=== PATIENT | male | born 1955 | race African-American/Black ===

== ENCOUNTER 2017-04-10 01:00 | Inpatient (IN) | payer MEDICARE ==
--- NOTE | ~2017-04-10 | DS ---
Unit #: [id number] #: [id number] Patient: NICKOLAS HUGHES [id number] [facility] [address] [place] [address] [id number] MR#: [id number] NAME: NICKOLAS HUGHES ROOM: P256 Age: 61 Sex: M Admission Date: 04/10/2017 : 1955 Discharge Date: 04/14/2017 Attending Physician: Shon Vidal M.D. Primary Care Physician: Primary Care Physician No DISCHARGE SUMMARY REASON FOR ADMISSION The patient is a 61-year-old man with a history of PTSD from service, who reported noncompliance with medication and suicidal ideation. He was admitted for stabilization. LABORATORY DATA Please see hospital chart. HOSPITAL COURSE The patient was admitted and placed on suicide precautions. His home medications will be restarted after we contact his outpatient provider. He had no further suicidal ideation, and showed improvement with participation in groups and activities. On the date of discharge, he was once again able to contract for safety in the outpatient setting. DISCHARGE DIAGNOSIS AXIS I: Posttraumatic stress disorder, chronic. AXIS II: No diagnosis. AXIS III: Hypertension, hypothyroidism, hyperlipidemia, and irritable bowel syndrome. AXIS IV: AXIS V: DISCHARGE INSTRUCTIONS Follow up with Perlita Alejandre. DISCHARGE MEDICATIONS Zyprexa 5 mg at bedtime for mood stability, trazodone 100 mg at bedtime for insomnia. Primary care medicines were continued, unchanged. CONDITION AT DISCHARGE Improved. PROGNOSIS Fair. DIET AND ACTIVITY Per primary care doctor. Dictated by... Unit #: [id number] #: [id number] Patient: NICKOLAS HUGHES Shon Vidal M.D. [facility]/kal TD: 04/29/2017 14:01 JOB #: [id number] DISCHARGE SUMMARY Page 1 of 1 X Shon Vidal MD X DISCHARGE SUMMARY
--- NOTE | ~2017-04-10 | HP ---
Unit #: [id number] #: [id number] Patient: NICKOLAS HUGHES [id number] [place] [address] [id number] MR#: [id number] NAME: NICKOLAS HUGHES ROOM: P207 Age: 61 Sex: M Admission Date: 04/10/2017 : 1955 Attending Physician: Shon Vidal M.D. Admitting Physician: Shon Vidal M.D. Primary Care Physician: Primary Care Physician No HISTORY AND PHYSICAL HISTORY OF PRESENT ILLNESS The patient is a 61-year-old male admitted to [address] [place] [address] on 04/10/2017 for suicidal ideations. PAST MEDICAL HISTORY 1. Hypertension 2. Hyperlipidemia 3. Hypothyroidism 4. IBS with diarrhea PAST SURGICAL HISTORY Cardiac stent placement SOCIAL HISTORY He is disabled. He lives alone. He denies alcohol, tobacco and drug use. FAMILY MEDICAL HISTORY Noncontributory. ALLERGIES No known drug allergies. CURRENT MEDICATIONS The patient is not on any home medications. REVIEW OF SYSTEMS CONSTITUTIONAL: No fever or chills. HEENT: Denies any sore throat, ear pain or runny nose. CARDIOVASCULAR: Denies chest pain, irregular heart rhythm or palpitations. CHEST: Denies shortness of breath or cough. No hemoptysis. GASTROINTESTINAL: Denies nausea, vomiting, diarrhea or chronic constipation. ENDOCRINE: Denies history of increased thirst or urination. No recent significant weight loss or gain. GENITOURINARY: Denies dysuria, frequency, or hematuria. SKIN: Denies any rashes. HEMATOLOGIC: Denies history of increased bleeding or bruising. MUSCULOSKELETAL: Denies any hot, swollen joints. No generalized muscle pain. NEUROLOGIC: Denies problems with vision or speech. No frequent, severe headaches. No numbness, tingling or weakness in any extremities. Denies loss of bladder or bowel control. Unit #: [id number] #: [id number] Patient: NICKOLAS HUGHES PHYSICAL EXAM GENERAL: He is awake, alert and oriented in no acute distress. VITAL SIGNS: Temperature 98.2, heart rate 88, respiration 18, blood pressure 147/84. HEIGHT: 5'9". WEIGHT: 135 pounds. SKIN: Warm and dry without rash or lesion. HEENT: Normocephalic. TMs not viewed. Oral and nasal passages clear. Conjunctivae clear. PERRLA. EOMs intact. NECK: Supple without lymphadenopathy or thyromegaly. HEART: Regular rate and rhythm without murmur. LUNGS: Clear. ABDOMEN: Soft, nontender. : Not done. EXTREMITIES: No evidence of cyanosis, clubbing or edema. Moves all without focal deficit. NEUROLOGICAL: Grossly within normal limits. Cranial Nerves: II: Visual jurado are intact. III, IV AND : Extraocular movements are intact. Pupils are equal, round and reactive to light. V: Facial sensation is grossly normal. VII: Facial movements and expression are normal. VIII: Auditory acuity grossly intact. IX, X: Uvula is midline. Phonation is normal. XI: Patient shrugs shoulders and turns head normally. XII: Tongue protrudes in the midline. Sensory and Motor Function: Sensory and motor sensation is grossly normal. Motor: moves all extremities well. IMPRESSION 1. Psychiatric admission. 2. Hypertension. 3. Hyperlipidemia. 4. Hypothyroidism. 5. IBS with diarrhea. RECOMMENDATIONS Psychiatric per psychiatrist. MEDICAL: No contraindication to participate in facility activities. MEDICAL PROGNOSIS Good. MEDICAL CONDITION Stable. Dictated by... Mathew Hobson/danica TD: 04/10/2017 21:43 JOB #: [id number] Unit #: [id number] #: [id number] Patient: NICKOLAS HUGHES HISTORY AND PHYSICAL Page 1 of 1 X LAURA CANO APRN HISTORY AND PHYSICAL
--- NOTE | ~2017-04-10 | EKG ---
PATIENT: NICKOLAS HUGHES UNIT #: [id number] Ventricular Rate: 0 BPM Atrial Rate: 0 BPM QRS Duration: 0 ms Q-T Interval: 0 ms QTC Calculation(Bezet): 0 ms Calculated R Ponce: 0 degrees Calculated T Ponce: 0 degrees Diagnosis Line: No QRS complexes found, no ECG analysis Diagnosis Line: possible Diagnosis Line: When compared with ECG of 16-MAY-2016 00:15, Diagnosis Line: ventricular asystole is seen Diagnosis Line: Confirmed by ANUSHA SCHULTZ MD ([id number]) on 04/14/2017 Diagnosis Line: 8:38:38 PM INTERPRETING MD: MARION OLIVIA
--- NOTE | ~2017-04-10 | PA ---
Unit #: [id number] #: [id number] Patient: BA JANE [id number] [facility] [address] [place] [address] [id number] I MR#: [id number] NAME: BA JANE ROOM: P256 Age: 61 Sex: M Admission Date: 04/10/2017 : 1955 Date of Assessment: Attending Physician: Shon Vidal M.D. Admitting Physician: Shon Vidal M.D. Primary Care Physician: Primary Care Physician No PSYCHIATRIC ASSESSMENT INFORMANTS Patient, partially reliable; OLOP, reliable. CHIEF COMPLAINT "bad thoughts". HISTORY OF PRESENT ILLNESS Ba Jane is a 61-year-old man, who reports a history of PTSD from service. He was treated at the [facility], but reports increasing "bad thoughts" with thoughts of wanting to jump off the bridge to commit suicide. He has also been noncompliant with his treatment, which he claims he gets to the [facility] and through the local facility and [facility]. He was unable to contract for safety and admitted for stabilization. PAST PSYCHIATRIC HISTORY The patient reports a history of posttraumatic stress disorder, and "schizophrenia", which is unconfirmed. He has been inpatient at [facility], at the [facility], and also reports previous treatment at this facility, although medical records of such treatment are unavailable. He had difficulty recalling his current psychiatric medication regimen and we will need to determine this by a call to his current provider. FAMILY PSYCHIATRIC HISTORY The patient denies any family history of mental illness or substance abuse. SOCIAL HISTORY The patient denies a history of childhood physical, sexual, or emotional abuse or neglect. He is a single heterosexual man, who has graduated from high school and is on long-term disability. 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 He lives alone with minimal family support. PAST MEDICAL HISTORY Significant for hypertension, thyroid disease, and PTSD. MEDICATIONS Please see MAR for the patient's medications which he could not recall accurately. ALLERGIES No known medication allergies. Unit #: [id number] #: [id number] Patient: BA JANE SUBSTANCE USE HISTORY The patient denies any history of chemical dependence or abuse. MENTAL STATUS EXAMINATION The patient presented as a mildly disheveled man, who appeared older than his stated age. He was cooperative with the examination. His speech was soft, mildly circumstantial, but easily understood. His musculoskeletal examination was calm. His mood was depressed and irritable with a congruent affect. He was alert and fully oriented. His memory and concentration were intact. His thought processes were logical and his thought processes were concrete, but no active psychosis was seen. He had reported some vague auditory hallucinations prior to coming to the hospital, but these were not in evidence during my assessment. He reported suicidal ideation with a plan to jump from the bridge and could not contract for safety. Insight and judgment were fair. Fund of knowledge and abstraction were fair. ASSETS AND LIABILITIES The patient is connected with caregivers, has long-term disability and medical insurance. Liabilities include apparent noncompliance with treatment. ADMITTING DIAGNOSES AXIS I: Posttraumatic stress disorder, chronic. AXIS II: No diagnosis. AXIS III: Hypertension. Hypothyroidism. History of hyperlipidemia. History of IBS. AXIS IV: AXIS V: PSYCHIATRIC PLAN The patient was admitted and placed on suicide precautions. We will contact his outpatient provider and restart his previous medications with upward titration as clinically indicated. He will enroll in psychotherapy groups and activities. Physical examination and laboratory studies will be ordered and reviewed. TREATMENT GOALS Resolution of SI, improvement in mood, improvement in insight, and improvement in coping skills. DISCHARGE PLANNING Follow up with Perlita Rojas, and the [facility]. ESTIMATED LENGTH OF STAY 5 days. Dictated by... Shon Vidal M.D. [facility]/kal TD: 04/12/2017 16:41 JOB #: [id number] Unit #: [id number] #: [id number] Patient: BA JANE PSYCHIATRIC ASSESSMENT Page 1 of 1 X Shon Vidal MD X PSYCHIATRIC ASSESSMENT
--- NOTE | ~2017-04-10 | PA ---
Unit #: [id number] #: [id number] Patient: NICKOLAS HUGHES [id number] [facility] [address] [place] [address] [id number] MR#: [id number] NAME: NICKOLAS HUGHES ROOM: P256 Age: 61 Sex: M Admission Date: 04/10/2017 : 1955 Date of Assessment: Attending Physician: Shon Vidal M.D. Admitting Physician: Shon Vidal M.D. Primary Care Physician: Primary Care Physician No PSYCHIATRIC ASSESSMENT INFORMANTS The patient, which is considered reliable and [facility], which is considered reliable. CHIEF COMPLAINT He reports "I'm suicidal." HISTORY OF PRESENT ILLNESS The patient is a 61-year-old male who reports he has been having medical issues for the past year dealing with his stomach. He reports he is a of the [employer] and has a history of PTSD, depression, and anxiety. He reports he was eating at [employer] and began to have issues with his stomach again and that he started having "bad thoughts." He reports he started feeling very depressed due to anxiety and his current health issues. He reported thoughts of going to jump off a bridge to commit suicide at this time. PAST PSYCHIATRIC HISTORY The patient reports a history of attempted overdose on medications in 1992 and history of being admitted at other facilities for psychiatric issues. [facility]. FAMILY PSYCHIATRIC HISTORY The patient denies family psychiatric history at this time. 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 He reports that he lives by himself and is single and he has 4 children. At this time, he is unemployed and receives disability due to his PTSD from being in the [employer]. MEDICATIONS [facility] Please see MAR when completed. ALLERGIES No reported allergies at this time. SUBSTANCE ABUSE HISTORY The patient denies any form of substance abuse in the past. MENTAL STATUS EXAMINATION Reveals a 61-year-old male, casually dressed, mildly Unit #: [id number] #: [id number] Patient: NICKOLAS HUGHES disheveled with fair personal hygiene. The patient is oriented to person, place, time, date, and situation. His mood appears dysthymic with a congruent affect. His speech is relevant and coherent with a normal tone and rate. Thought processes and content are logical and goal directed. He currently denies suicidal or homicidal ideations, and reports that he can keep himself safe at this facility. I cannot confirm he can do so if on his own and at home. He denies auditory or visual hallucinations, and no overt symptoms of psychosis are noted. His memory and intellectual function appear grossly intact. His judgment and insight at this time appear limited. He reports his sleep and appetite as evidenced by frequent awakenings and reports inadequate appetite at this time. ASSETS AND LIABILITIES Assets are the patient's willingness to be treated. Liabilities would be current suicidal ideation and the patient's health/medical issues. ADMITTING DIAGNOSES AXIS I: Major depressive disorder, severe, recurrent without psychotic features. AXIS II: Deferred. AXIS III: Hypertension, hyperlipidemia, hypothyroidism, irritable bowel syndrome, and chronic issues with diarrhea. AXIS IV: AXIS V: PSYCHIATRIC PLAN The patient was admitted and placed on suicidal precautions. We will continue his home medications once [facility] by the [facility]. We will encourage the patient to enroll and integrate himself within the therapeutic milieu and enroll and participate in unit groups and activities at this time. Dictated by... Jeannie Hughes APRN for [facility]/kal TD: 04/12/2017 08:31 JOB #: [id number] PSYCHIATRIC ASSESSMENT Page 1 of 1 X JEANNIE HUGHES PSYCHIATRIC ASSESSMENT
[~2017-04-10 01:00] MED LIST: ALLER-TEC10 MG PO; CERTRIZINE PO; HCTZ PO; ISOSORBIDE MONO30 M1 PO; ISOSORBIDE PO; LORTAB 5/500 TA1 TA1 PO; METOPROLOL PO; METOPROLOL SUC100 MG PO; METOPROLOL TAR25 MG PO; MIRALAX17 GM PO; OMEPRAZOLE40 MG PO; SYNTHROID0.2 MG PO; THYROXINE; TOPROL XL 50 MG50 M1 PO; TRAMADOL HCL50 M1 PO; TRIAMTERENE PO; TRIAMTERENE/HCT1 TA3 PO; [UNRECOGNIZED DRUG - OTHER] PO; [UNRECOGNIZED DRUG - OTHER] PO
[2017-04-11 09:43] LABS: BASOPHIL% 0.5 % (0-2.5); EOSINOPHIL# 0.3 X10e3 (0-0.7); EOSINOPHIL% 6.4 % (0.0-7.0); HEMATOCRIT 45.1 % (38.0-50.0); HEMOGLOBIN 14.8 gm/dL (13.0-16.0); LYMPHOCYTE# 1.2 X10e3 (1.0-3.5); LYMPHOCYTE% 28.6 % (17.0-45.0); MEAN CORPUSCULAR HEMOGLOBIN 29.9 PG (28-34); MEAN CORPUSCULAR HGB CONC 32.9 g/dL (30-36); MEAN PLATELET VOLUME 7.3 FL (6.5-11.5); MONOCYTE# 0.3 X10e3 (0-1.0); MONOCYTE% 6.6 % (3.0-12.0); NEUTROPHIL# 2.4 X10e3 (1.5-7.1); NEUTROPHIL% 57.9 % (40-75); PLATELET COUNT 196 X10e3 (140-420); RED BLOOD COUNT 4.95 X10e (3.90-5.60); RED CELL DISTRIBUTION WIDTH 12.9 % (11.0-15.5); WHITE BLOOD COUNT 4.2 X10e3 (4.0-10.5)
[2017-04-11 09:48] LABS: URINE APPEARANCE CLEAR; URINE BILIRUBIN NEG (NEG); URINE BLOOD NEG (NEG); URINE COLOR YELLOW; URINE GLUCOSE NEG (NEG); URINE KETONE NEG (NEG); URINE LEUKOCYTE ESTERASE NEG (NEG); URINE NITRATE NEG (NEG); URINE PH 7.5 (5-8); URINE PROTEIN NEG (NEG); URINE UROBILINOGEN 0.2 MG/DL (NEG)
[2017-04-11 10:04] LABS: DIFF IND NO
[2017-04-11 10:43] LABS: AMPHETAMINE NEG (NEG); BARBITURATES NEG (NEG); BENZODIAZEPINES NEG (NEG); COCAINE NEG (NEG); MARIJUANA POS (NEG); OPIATES NEG (NEG); TRICYCLIC ANTIDEPRESSANTS NEG (NEG); U METHADONE NEG (NEG)
[2017-04-11 10:45] LABS: ALBUMIN SERUM 4.1 g/dL (3.5-5.0); BILIRUBIN,TOTAL 0.7 mg/dL (0.2-2.0); BUN/CREATININE RATIO 12.3; CALCIUM SERUM 10.4 mg/dL (8.4-10.2); CREATININE SERUM 1.3 mg/dL (0.6-1.4); GLOM FILT RATE Estimated 67.8 mL/min (>60); POTASSIUM 3.9 mmol/L (3.5-5.1); PROTEIN TOTAL SERUM 6.7 g/dL (6.0-8.3)
[2017-06-21] MEDS ORDERED: AMLODIPINE BESY10 MG PO (14:10)
[2017-06-21] MEDS ORDERED: SYNTHROID0.2 MG DOB (14:10)
[2017-06-21] MEDS ORDERED: LIPITOR20 MG PO (14:11)
[2017-06-21] MEDS ORDERED: VITAMIN D 22000 UNIT (14:12)
== END 2017-04-14 14:10 | disposition home or self-care (01) | DRG 885 ==
LOC: P2S 04:42 → P2L 04-11 15:27
PROVIDERS: Psychiatry & Neurology Psychiatry
DX: F33.2 Major depressive disorder, recurrent severe without psychotic features (principal); R45.851 Suicidal ideations; I10 Essential (primary) hypertension; F43.12 Post-traumatic stress disorder, chronic; E03.9 Hypothyroidism, unspecified; E78.5 Hyperlipidemia, unspecified; K58.0 Irritable bowel syndrome with diarrhea; Z95.5 Presence of coronary angioplasty implant and graft
CPT/HCPCS: 80053; 80307; 81003; 85025

== ENCOUNTER → 2017-06-21 | Day surgery (SDC) | payer MEDICARE ==
[~2017-06-21] MED LIST changes: +AMLODIPINE BESY10 MG PO; +LIPITOR20 MG PO; +SYNTHROID0.2 MG DOB; +VITAMIN D 22000 UNIT
--- NOTE | ~2017-06-21 | OR ---
Unit #: [id number] #: [id number] Patient: NICKOLAS HUGHES [id number] [address] [address] [id number] MR#: [id number] NAME: NICKOLAS HUGHES ROOM: Date of Procedure: 06/21/2017 Admission Date: 06/21/2017 Surgeon: Edward Dougherty M.D. : 1955 Attending Physician: Edward Dougherty M.D. Referring Physician: Edward Dougherty M.D. Primary Care Physician: Rosie Hickey M.D. OPERATIVE REPORT PREOPERATIVE DIAGNOSES Dyspepsia and epigastric pain. In addition, the patient had history of diarrhea and left and right lower quadrant abdominal pain. He also has history of colonic polyps removed in the past. Incidentally, he is attributing his symptoms to the fact that he ate in the restaurant something fell from the roof at that time and is continuously obsesses with this feeling. PROCEDURES PERFORMED Upper gastrointestinal endoscopy and biopsy as well as colonoscopy with biopsy and colonoscopy with polypectomy. POSTOPERATIVE DIAGNOSIS For upper endoscopy: 1. The patient had focal patchy erosive duodenitis. 2. There was grade 2 distal erosive reflux esophagitis. 3. Rest of the examination up to third part of the duodenum was normal. For colonoscopy: 1. The patient had two sessile polyps, one each in the cecum and distal descending colon. Both were sessile and about 6 to 8 mm each and were removed using snare polypectomy. 2. Small internal hemorrhoids. 3. Rest of the examination up to cecum and terminal ileum was normal. The quality of the prep was excellent. RECOMMENDATIONS The patient is started on p.r.n. Bentyl and Lomotil as well as daily omeprazole 40 mg p.o. daily. He will be followed up in the office in 3 months' time. SEDATION USED MAC. DESCRIPTION OF PROCEDURE Following detailed explanation of the potential risks and complications of an upper endoscopy and a colonoscopy, namely perforation, bleeding, and complications related to sedation, the patient was brought to GI lab and laid in the left lateral decubitus position. Lubricated tip of the Olympus video upper endoscope was passed through bite block into the proximal esophagus under direct vision. The entire esophageal mucosa was examined. The patient was noted to have grade 1 to 2 distal erosive esophagitis. This was in the form of linear erosions in Z-line and distal Unit #: [id number] #: [id number] Patient: NICKOLAS HUGHES. The scope was then advanced into the gastric cavity and the latter was insufflated. Mucosa of the fundus, body, and antrum examined and appeared unremarkable. Pylorus was intubated with visualization of the duodenal bulb. The latter was noted to have focal patchy erosive duodenitis. Second and third part of duodenum were normal. Upon withdrawal and retroflexion, incisura, cardia, and greater curve examined and biopsy obtained from the antrum for CLOtest. The scope was then withdrawn in the distal esophagus. Entire esophageal mucosa was examined all the way up to pharynx. No additional findings noted. The examination table was then turned by 180 degrees and the patient positioned for a colonoscopy. A digital rectal examination was performed, which was normal. Lubricated tip of the Olympus video colonoscope was inserted through the anus and advanced under direct vision. The scope was advanced and passed up to sigmoid into descending colon. No diverticula were noted in this area. The scope tip was then navigated all the way up to cecum with visualization of ileocecal valve and the appendiceal orifice. Preparation was excellent with good visualization and photodocumentation was obtained. Last several inches of the terminal ileum also visualized after intubation of the ileocecal valve and appeared normal. Successive segments of the colonic mucosa were examined upon withdrawal and the patient was noted to have 2 sessile polyps, one each in the cecum and proximal descending colon. These were 6 to 8 mm each and sessile. Both were removed using snare polypectomy. They were retrieved and sent for histology. No additional polyps were noted. The patient did not have any diverticulosis, but did have small internal hemorrhoids seen at the anal verge. Multiple random colonic biopsies obtained from throughout the colon to rule out microscopic or collagenous colitis. The scope was then withdrawn. The patient returned to recovery area. He tolerated the procedure without any postprocedure complications. Dictated by.Toy. Jack Shankar TD: 06/22/2017 22:24 JOB #: [id number] OPERATIVE REPORT Page 1 of 1 X Edward Dougherty MD PROCEDURE OPERATIVE NOTE
== END | disposition home or self-care (01) ==
LOC: COPS 13:42
DX: D12.3 Benign neoplasm of transverse colon (principal); K29.80 Duodenitis without bleeding; K21.0 Gastro-esophageal reflux disease with esophagitis; K64.8 Other hemorrhoids; I25.10 Atherosclerotic heart disease of native coronary artery without angina pectoris; E66.01 Morbid (severe) obesity due to excess calories; Z68.35 Body mass index [BMI] 35.0-35.9, adult; Z79.899 Other long term (current) drug therapy; Z95.5 Presence of coronary angioplasty implant and graft
CPT/HCPCS: 87077; 88305